=== PATIENT | female | born 1970 | race Caucasian/White ===

== ENCOUNTER 2019-09-12 08:00 | Outpatient (NON) | payer OTHER, SELFPAY ==
[2019-09-12 18:54] LABS: SARS-CoV-2 RNA PCR Negative
== END 2019-09-12 08:01 ==
DX: Z01.812 Encounter for preprocedural laboratory examination (principal); Z11.59 Encounter for screening for other viral diseases; E11.9 Type 2 diabetes mellitus without complications; I10 Essential (primary) hypertension; G47.30 Sleep apnea, unspecified; J45.909 Unspecified asthma, uncomplicated; E78.00 Pure hypercholesterolemia, unspecified
CPT/HCPCS: 87635; C9803; U0003

== ENCOUNTER 2023-03-31 14:23 | Outpatient (CLI) | payer BC, SELFPAY ==
--- NOTE | ~2023-03-31 | MM_ITS ---
EXAMINATION: MM screening librado BI w luis alfredo HISTORY: Screening TECHNIQUE: Craniocaudal and mediolateral oblique 3-D tomosynthesis images were obtained and synthetic 2-D images were generated. CAD analysis was submitted and interpreted. COMPARISON: No prior mammogram is available for comparison at this institution. BREAST PARENCHYMAL COMPOSITION: There are scattered areas of fibroglandular density. FINDINGS: There is no evidence of suspicious mass, calcification, or architectural distortion to sugg est malignancy in either breast. There has been no suspicious interval change. IMPRESSION: 1. No mammographic evidence of malignancy. 2. Recommend routine screening mammography in one year. BI-RADS Category 1: Negative Reviewed, dictated and finalized at location A. S TENDER STAR SIGNAL
== END 2023-03-31 14:24 | disposition home or self-care (01) ==
PROVIDERS: Visit Provider Obstetrics & Gynecology
DX: Z12.31 Encounter for screening mammogram for malignant neoplasm of breast (principal)
CPT/HCPCS: 77063; 77067

== ENCOUNTER 2024-09-20 13:57 | Outpatient (CLI) | payer OTHER, SELFPAY ==
--- NOTE | ~2024-09-20 | MM_ITS ---
EXAMINATION: MM screening [facility] BI w luis alfredo HISTORY: Screening TECHNIQUE: Craniocaudal and mediolateral oblique 3-D tomosynthesis images were obtained and synthetic 2-D images were generated. CAD analysis was submitted and interpreted. COMPARISON: Comparison to multiple prior studies sequentially, with oldest reviewed study dated 12/14. BREAST PARENCHYMAL COMPOSITION: Not Dense: The breasts are almost entirely fatty. 1 FINDINGS: There is no evidence of suspicious mass, calcification, or architectural distortion to sugg est malignancy in either breast. There has been no suspicious interval change. IMPRESSION: 1. No mammographic evidence of malignancy. 2. Recommend routine screening mammography in one year. BI-RADS Category 1: Negative Reviewed, dictated and finalized at location A.
--- OUTSIDE RECORDS SUMMARY | 2024-09-20 14:03 | XMS_ITS | Encounter Summary ---
Author Organization [facility] Address [address] [place] [address] Care Team Providers Care Analytical Chemistry Teacher Name Role Phone Jose Manuel Carranza MD Unavailable Lesa Munguia Primary Care Provider [phone] Encounter Details Date Type Department Care Team (Late st Contact Info) Description 09/15/2024 [employer] Message Enc [facility] Family & Internal Medicine [facility] [address] [place] [address] Lesa Munguia APNP [address] [place] [address] Test results Social History Tobacco Use Types Packs/Day Years Used Date Smoking Tobacco: Never Smokeless Tobacco: Never Alcohol Use Standard Drinks/Week Comments No 0 (1 standard drink = 0.6 oz pur e alcohol) B1300 Health Literacy Answer Date Recor ded How often do you need to hav e someone help you when you read instructions, pamphlets, or other written material from your doctor or pharmacy? Never 02/16/2024 [facility] Utilities Answer Date Recorded In the past 12 months has e electric, gas, oil, or water company threatened to shut off services in your home? No 02/16/2024 Humiliation, Afraid, Rape, and Kick questionnair e Answer Date Recorded Within the last year, have y ou been afraid of your partner or ex-partner? No 02/16/2024 Within the last year, have y ou been humiliated or emotionally abused in other ways by your partner or ex-partner? No Within the last year, have y ou been kicked, hit, slapped, or otherwise physically hurt by your partner or ex-partner? No 02/16/2024 Within the last year, have y ou been raped or forced to have any kind of sexual activity by your partner or ex-partner? No 02/16/2024 Social Connection and Isolat ion Panel [NHANES] Answer Date Recorded In a typical week, how many times do you talk on the phone with family, friends, or neighbors? More than three times a week 02/16/2024 How often do you get togethe r with friends or relatives? More than three times a week 02/16/2024 How often do you attend chur ch or rastafarian services? More than 4 times per year 02/16/2024 Do you belong to any clubs o r organizations such as scientology groups, unions, fraternal or athletic groups, or school groups? Yes 02/16/2024 How often do you attend meet ings of the clubs or organizations you belong to? More than 4 times per year 02/16/2024 Are you , , di vorced, , never , or living with a partner? 02/16/2024 AUDIT-C Answer Date Recorded Q1: How often do you have a drink containing alcohol? Never 02/16/2024 Q2: How many drinks containi ng alcohol do you have on a typical day when you are drinking? Patient does not drink Q3: How often do you have si x or more drinks on one occasion? Never 02/16/2024 Overall Financial Resource Strain (CARDIA) Answe r Date Recorded How hard is it for you to pa y for the very basics like food, housing, medical care, and heating? Not hard at all 02/16/2024 PHQ-2 Answer Date Recorded Patient Health Questionnaire-2 Score 0 03/28/2024 [facility] - Occupational Stress Questionnaire Answer Date Recorded Do you feel stress - tense, restless, nervous, or anxious, or unable to sleep at night because your mind is troubled all the time - these days? Rather much 02/16/2024 Hunger Vital Sign Answer Date Recorded Within the past 12 months, y ou worried that your food would run out before you got the money to buy more. Never true 02/16/20 24 Within the past 12 months, t he food you bought just didn't last and you didn't have money to get more. Never true 02/16/2024 PRAPARE - Transportation Answer Date Re corded In the past 12 months, has l ack of transportation kept you from medical appointments or from getting medications? No 05/2023 In the past 12 months, has l ack of transportation kept you from meetings, work, or from getting things needed for daily living? No 02/16/2024 Housing Stability Vital Sign Answer Jose M e Recorded In the last 12 months, was t here a time when you were not able to pay the mortgage or rent on time? No 02/16/2024 In the past 12 months, how m any times have you moved where you were living? 0 02/16/2024 At any time in the past 12 m [facility], were you homeless or living in a skilled nursing (including now)? No 02/16/2024 Comments No Sex and Gender Information Value Date Recorded Sex Assigned at Female 04/07/2024 7:52 AM PER DIEM REGISTERED NURSE Legal Sex Female 4:22 PM CDT Gender Identity Not on file Sexual Orientation Straight 07/13/2018 9: 36 AM CDT Occupation Industry Job Start Date Job End Date Not on file Not on file Not on file Not on file documented as of this encounter Functional Status * Are you deaf or do you have serious difficulty hearing Answer Date of Assessment Author Status No 02/16/2024 9:48 PM PER DIEM REGISTERED NURSE Tete Kong RN Active * Are you blind or do you have serious difficulty seeing, even when wearing glasses? Answer Date of Assessment Author Status No 02/16/2024 9:48 PM PER DIEM REGISTERED NURSE Tete Kong RN Active * Do you have serious difficulty walking or climbing stairs? Answer Date of Assessment Author Status No 02/16/2024 9:48 PM Tete Monsalve RN Active * Do you have difficulty dressing or bathing? Answer Date of Assessment Author Status No 02/16/2024 9:48 PM PER DIEM REGISTERED NURSE Tete Kong RN Active * Because of a physical, mental, or emotional condition, do you have difficulty doing errands alone such as visiting a doctor's office or shopping? Answer Date of Assessment Author Status No 02/16/2024 9:48 PM Tete Monsalve, RN Active documented as of this encounter Mental Status * Because of a physical, mental, or emotional condition, do you have serious difficulty concentrating, remembering, or making decisions? Answer Entry Date Author Status No 02/16/2024 9:48 PM Tete Monsalve RN Active documented in this encounter Progress Notes * Alayna Steinberg MA - 09/19/2024 12:08 PM CDT Pt is scheduled for OV tomorrow with Lesa to discuss worsening labs, A1c. Pt has voiced openness to discussing medications/other tx options to bring her A1c and lipids back under control. * Alayna Steinberg MA - 09/19/2024 8:35 AM CDT Called pt to offer in-person appt. Tomorrow 09/20/24 with Lesa (aware it is a Virtual day, but Lesahas informed she will be in office conducting the VV tomorrow, so this pt can schedule VV or in-person.) documented in this encounter Plan of Treatment Upcoming Encounters Date Type Department Care Team (Late st Contact Info) Description 09/26/2024 1:40 PM CDT [facility] [address] [facility] [place] [phone] Vale Aparicio MD [address] [place], [place] [id number] 11/01/2024 11:30 AM CDT [facility] [address] [facility] [place] [address] Vish Cook DO [address] [facility] [address] [place] [address] documented as of this encounter Goals Goal Patient Goal Type Associated Problems Recent Progress Patient-Stated? Author Health - patient able to perform ADLs independently Lifestyle No Karla Mccauley, RN documented as of this encounter Visit Diagnoses Not on filedocumented in this encounter Additional Health Concerns Assessment Noted Time PHQ-9 Depression Total Score: 9 03/21/19 23 12:44 PM PER DIEM REGISTERED NURSE documented as of this encounter Care Teams Analytical Chemistry Teacher Relationship Specialty Start Date End Date Lesa Munguia APNP [address] [place] [address] PCP - General NURSE PRACTITIONER 04/30/18 Jose Manuel Carranza MD [facility] [address] [place] [address] Vista Stone Carver CARDIOVASCULAR DISEASE 08/15/15 documented as of this encounter
--- OUTSIDE RECORDS SUMMARY | 2024-09-20 14:03 | XMS_ITS | Encounter Summary ---
Author Organization [facility] Address [address] [place] [address] Care Team Providers Care Software Trainer Name Role Phone Jose Manuel Carranza MD Unavailable Lesa Munguia Primary Care Provider [phone] Encounter Details Date Type Department Care Team (Late st Contact Info) Description 02/14/2020 Prep for Procedure [facility] [place] [address] Erickson Baker MD [address] [id number] Social History Tobacco Use Types Packs/Day Years Used Date Smoking Tobacco: Never Smokeless Tobacco: Never Alcohol Use Standard Drinks/Week Comments No 0 (1 standard drink = 0.6 oz pur e alcohol) PHQ-2 Answer Date Recorded PHQ-2 Score 0 06/11/2018 Comments No Sex and Gender Information Value Date Recorded Sex Assigned at Female 04/07/2024 7:52 AM HVAC SERVICE TECH Legal Sex Female 4:22 PM CDT Gender Identity Not on file Sexual Orientation Straight 07/13/2018 9: 36 AM CDT Occupation Industry Job Start Date Job End Date Not on file Not on file Not on file Not on file COVID-19 Exposure Response Date Recorded In the last month, have you been in contact with someone who was confirmed or suspected to have Coronavirus / COVID-19? No / Unsure 01/25/2020 12:31 PM HVAC SERVICE TECH documented as of this encounter Functional Status * RETIRED Are you deaf or do you have serious difficulty hearing Answer Date of Assessment Author Status No 07/13/2018 9:38 AM CDT Activ e * RETIRED Are you blind or do you have serious difficulty seeing, even when wearing glasses? Answer Date of Assessment Author Status No 07/13/2018 9:38 AM CDT Activ e * Do you have serious difficulty walking or climbing stairs? Answer Date of Assessment Author Status Yes 07/13/2018 9:38 AM CDT Piotr Schmidt R N Active * Do you have difficulty dressing or bathing? Answer Date of Assessment Author Status No 07/13/2018 9:38 AM CDT Piotr Schmidt R N Active * Because of a physical, mental, or emotional condition, do you have difficulty doing errands alone such as visiting a doctor's office or shopping? Answer Date of Assessment Author Status No 07/13/2018 9:38 AM CDT Piotr Schmidt R N Active documented as of this encounter Mental Status * Because of a physical, mental, or emotional condition, do you have serious difficulty concentrating, remembering, or making decisions? Answer Entry Date Author Status No 07/13/2018 11:34 AM CDT Stephany Sawyer RN Active documented in this encounter Plan of Treatment Upcoming Encounters Date Type Department Care Team (Late st Contact Info) Description 09/26/2024 1:40 PM CDT Office Visit [facility] - [address], [address] [place] [phone] Vale Aparicio MD [address] [place] [address] 11/01/2024 11:30 AM CDT Office Visit [facility] - [address] [place] [phone] Vish Cook DO [address] [place] [address] [address] [place] [address] documented as of this encounter Visit Diagnoses Diagnosis Abdominal pain- Primary Abdominal pain, unspecified site documented in this encounter Additional Health Concerns Infection Onset Date Last Indicated Resolved Time COVID-19 Rule Out 11/07/2020 11/07/2020 11/07/2020 2:40 PM CDT COVID-19 Confirmed 11/07/2020 11/07/2020 12:35 AM CDT Assessment Noted Time PHQ-9 Depression Total Score: 8 04/30/19 2:23 PM HVAC SERVICE TECH documented as of this encounter Care Teams Software Trainer Relationship Specialty Start Date End Date Lesa Munguia APNP [address] [place] [address] PCP - General NURSE PRACTITIONER 04/30/18 Jose Manuel Carranza MD [facility] [address] [place] [address] [place] Hearing Health Technician CARDIOVASCULAR DISEASE 08/15/15 documented as of this encounter
--- OUTSIDE RECORDS SUMMARY | 2024-09-20 14:03 | XMS_ITS | Encounter Summary ---
Author Organization [facility] Address [address] [place] [address] Care Team Providers Care Cork Sorter Name Role Phone Jose Manuel Carranza MD Unavailable Lesa Munguia Primary Care Provider [phone] Encounter Details Date Type Department Care Team (Late st Contact Info) Description 08/31/2023 Pre-Procedure Call [facility] [place] [address] Vale Aparicio MD [address] [place], [place] [phone] Social History Tobacco Use Types Packs/Day Years Used Date Smoking Tobacco: Never Smokeless Tobacco: Never Alcohol Use Standard Drinks/Week Comments No 0 (1 standard drink = 0.6 oz pur e alcohol) PHQ-2 Answer Date Recorded Patient Health Questionnaire-2 Score 0 03/26/2023 Comments No Sex and Gender Information Value Date Recorded Sex Assigned at Female 04/07/2024 7:52 AM FABRICATION MACHINE OPERATOR Legal Sex Female 4:22 PM CDT Gender [...] Description 09/26/2024 1:40 PM CDT Office Visit [facility] - [address], [address] [place] [phone] Vale Aparicio MD [address] [place] [phone] 11/01/2024 11:30 AM CDT Office Visit [facility] - [facility] [address] [facility] [place] [phone] Vish Cook DO [address] [place] [address] [address] [place], [place] [phone] documented as of this encounter Visit Diagnoses Not on filedocumented in this encounter Additional Health Concerns Assessment Noted Time PHQ-9 Depression Total Score: 9 03/21/19 23 12:44 PM FABRICATION MACHINE OPERATOR documented as of this encounter Care Teams Cork Sorter Relationship Specialty Start Date End Date Lesa Munguia APNP [facility] [place] [address] PCP - General NURSE PRACTITIONER 04/30/18 Jose Manuel Carranza MD [facility] [address] [place] [address] Franklin Back Facer CARDIOVASCULAR DISEASE 08/15/15 documented as of this encounter
--- OUTSIDE RECORDS SUMMARY | 2024-09-20 14:03 | XMS_ITS | Encounter Summary ---
Author Organization [facility] Address [address] [place] [address] Care Team Providers Care Vehicle Assembly Inspector Name Role Phone Lloyd Garcia MD Primary Care Provider Jose Manuel Dunn MD Unavailable Lesa Munguia Primary Care Provider [phone] Encounter Details Date Type Department Care Team (Late st Contact Info) Description 11/15/2015 [facility] [address] [address] David Tom MA Social History Tobacco Use Types Packs/Day Years Used Date Smoking Tobacco: Never Smokeless Tobacco: Never Alcohol Use Standard Drinks/Week Comments No 0 (1 standard drink = 0.6 oz pur e alcohol) Comments Unknown Sex and Gender Information Value Date Recorded Sex Assigned at Female 04/07/2024 7:52 AM NONPROFIT FUNDRAISER Legal Sex Female 4:22 PM CDT Gender Identity Not on file Sexual Orientation Straight 07/13/2018 9: 36 AM CDT documented as of this encounter Plan of Treatment Upcoming Encounters Date Type Department Care Team (Late st Contact Info) Description 09/26/2024 1:40 PM CDT Office Visit [facility] Multispecialty Care - [address], [address] [place] [address] Vale Aparicio MD [address] [place] [address] 11/01/2024 11:30 AM CDT Office Visit [facility] Medical Group Multispecialty Care - [facility] [address] [place] [address] Vish Cook, DO [address] [facility] [address] [place] [address] documented as of this encounter Procedures Procedure Name Priority Date/Time Associated Diagnosis Comments CBC (OUTSIDE LAB) Routine 01/14/2016 BNP Routine 01/14/2016 COMPREHENSIVE METABOLIC PANEL Routine 01/14/2016 CBC (OUTSIDE LAB) Routine 08/28/2015 VITAMIN B-12 Routine 08/28/2015 COMPREHENSIVE METABOLIC PANEL Routine 08/28/2015 C-REACTIVE PROTEIN Routine 08/28/2015 THYROID STIM HORMONE TSH Routine 08/28/2015 CK (CPK) Routine 08/28/2015 documented in this encounter Results * BNP (01/14/2016) Pathologist [facility] B TYPE NATRIURETIC PEPTIDE 13.8 01/14/2016 us Doc [facility] Final Result * COMPREHENSIVE METABOLIC PANEL (01/14/2016) Pathologist [facility] SODIUM S/P/B 138 POTASSIUM S/P/B 4.3 CO2 23 CHLORIDE S/P/B 98 GLUCOSE 129 CALCIUM S/P/B 9.0 BUN 6 CREATININE S/P/B 0.49 EGFR AFR. AMER. >60 EGFR NON-AFR. AMER. >60 ALKALINE PHOSPHATASE S/P/B 70 ALT 36 AST 25 BILIRUBIN TOTAL S/P/B 0.3 ALBUMIN S/P/B 4.1 3.5 - 5.0 TOTAL PROTEIN S/P/B 6.6 GLOBULIN 2.5 01/14/2016 us Doc [facility] Final Result * CBC (OUTSIDE LAB) (01/14/2016) WBC 10.7 HGB 13.0 HCT 40 PLT 379 01/14/2016 us Doc [facility] Abstract LAB-OUTSIDE/ABSTRACTED Edite d Result - Final * CK (CPK) (08/28/2015) CPK 19 08/28/2015 us Doc [facility] Final Result * VITAMIN B-12 (08/28/2015) VITAMIN B12 S/P/B 417 08/28/2015 us Doc [facility] Final Result * THYROID STIM HORMONE, TSH (08/28/2015) TSH 2.80 08/28/2015 us Doc [facility] Final Result * C-REACTIVE PROTEIN (08/28/2015) CRP 1.59 08/28/2015 us Doc [facility] Final Result * COMPREHENSIVE METABOLIC PANEL (08/28/2015) SODIUM S/P/B 135 POTASSIUM S/P/B 4.1 CO2 24 CHLORIDE S/P/B 97 GLUCOSE 123 CALCIUM S/P/B 9.2 BUN 10 CREATININE S/P/B 0.68 EGFR AFR. AMER. >60 EGFR NON-AFR. AMER. >60 ALKALINE PHOSPHATASE S/P/B 73 ALT 27 AST 23 BILIRUBIN TOTAL S/P/B 0.3 ALBUMIN S/P/B 4.1 3.5 - 5.0 TOTAL PROTEIN S/P/B 7.0 GLOBULIN 2.9 08/28/2015 us Doc [facility] Final Result * CBC (OUTSIDE LAB) (08/28/2015) WBC 10.2 HGB 13.1 HCT 41.6 PLT 367 08/28/2015 us Doc [facility] Abstract LAB-OUTSIDE/ABSTRACTED Final Result documented in this encounter Visit Diagnoses Not on filedocumented in this encounter Additional Health Concerns Infection Onset Date Last Indicated Resolved Time COVID-19 Rule Out 08/09/2019 08/09/2019 08/10/2019 1:14 PM CDT COVID-19 Rule Out 11/07/2020 11/07/2020 11/07/2020 2:40 PM CDT COVID-19 Confirmed 11/07/2020 11/07/2020 12:35 AM CDT documented as of this encounter Care Teams Vehicle Assembly Inspector Relationship Specialty Start Date End Date Lloyd Garcia MD PCP - General FAMILY PRACTICE 08/29/15 04/29/18 Lesa Munguia APNP [address] [place] [address] PCP - General NURSE PRACTITIONER 04/30/18 Jose Manuel Carranza MD [facility] [address] [place] [address] [place] Retail Account Specialist CARDIOVASCULAR DISEASE 08/15/15 documented as of this encounter
--- OUTSIDE RECORDS SUMMARY | 2024-09-20 14:03 | XMS_ITS | Encounter Summary ---
Author Organization [facility] Address [address] [place] [address] Care Team Providers Care Poultry Dressing Worker Name Role Phone Jose Manuel Carranza MD Unavailable Lesa Munguia Primary Care Provider [phone] Encounter Details Date Type Department Care Team (Late st Contact Info) Description 09/19/2024 Results Follow-Up [facility] Medical Group Family & Internal Medicine [facility] [address] [place] [address] Lesa Munguia APNP [address] [place] [address] THYROXINE, FREE (FT4), THYROID STIM HORMONE TSH, CK (CPK), Additional followed-up results: 5 Social History Tobacco Use Types Packs/Day Years [...] from your doctor or pharmacy? Never 02/16/2024 [facility] Utilities Answer Date Recorded In the past 12 months has [employer] gas, oil, or water [employer] threatened to shut off services in your [...] often do you attend chur ch or sabianist services? More than 4 times per year 02/16/2024 Do you belong to any clubs o r organizations such as confucianist groups, unions, fraternal or athletic groups, or [...] Recorded Patient Health Questionnaire-2 Score 0 03/28/2024 [facility] Occupat ional Health - Occupational Stress [...] any time in the past 12 m [facility], were you homeless or living in a [facility]p (including now)? No 02/16/2024 Comments No Sex and Gender Information Value Date Recorded Sex Assigned at Female 04/07/2024 7:52 AM BIOGEOGRAPHER Legal Sex Female 4:22 PM CDT Gender [...] 9:48 PM Tete Monsalve RN Active * Are you blind or do you have serious difficulty seeing, even when wearing glasses? Answer Date of Assessment Author Status No 02/16/2024 9:48 PM Tete Monsalve RN Active * Do you have serious difficulty walking or climbing stairs? Answer Date of Assessment Author Status No 02/16/2024 9:48 PM Tete Monsalve RN Active * Do you have difficulty dressing or bathing? Answer Date of Assessment Author Status No 02/16/2024 9:48 PM Tete Monsalve RN Active * Because of a physical, mental, or emotional condition, do you have difficulty doing errands alone such as visiting a doctor's office or shopping? Answer Date of Assessment Author Status No 02/16/2024 9:48 PM Tete Monsalve RN Active documented as of this encounter Mental Status * Because of a physical, mental, or emotional condition, do you have serious difficulty concentrating, remembering, or making decisions? Answer Entry Date Author Status No 02/16/2024 9:48 PM Tete Monsalve RN Active documented in this encounter Plan of Treatment Upcoming Encounters Date Type Department Care Team (Late st Contact Info) Description 09/26/2024 1:40 PM CDT Office Visit [facility] [address] [facility], [address] [place] [phone] Vale Aparicio MD [address] [place] [address] 11/01/2024 11:30 AM CDT Office Visit [facility] [address] [facility] [place] [phone] Vish Cook DO [address] [facility] [address] [place] [address] documented as of this encounter Goals Goal Patient Goal Type Associated Problems Recent Progress Patient-Stated? Author Health - patient able to perform ADLs independently Lifestyle No Karla Mccauley RN documented as of this encounter Visit Diagnoses Not on filedocumented in this encounter Additional Health Concerns Assessment Noted Time PHQ-9 Depression Total Score: 9 03/21/19 23 12:44 PM BIOGEOGRAPHER documented as of this encounter Care Teams Poultry Dressing Worker Relationship Specialty Start Date End Date Lesa Munguia APNP [address] [place] [address] PCP - General NURSE PRACTITIONER 04/30/18 Jose Manuel Carranza MD Three [facility]. [facility] [address] [place], [place] [phone] [place] Machine Cage Maker CARDIOVASCULAR DISEASE 08/15/15 documented as of this encounter
--- OUTSIDE RECORDS SUMMARY | 2024-09-20 14:03 | XMS_ITS | Data Portability ---
Author Organization [place] - [facility] [employer] [facility] Address [address] [place] [address] Assessment No assessment recorded. Plan of Treatment Reminders Order Date Submit Date Provider Last Modified By Organization Details Last Modified Time Details Appointments None recorded. Lab None recorded. Referral None recorded. Procedures None recorded. Surgeries None recorded. Imaging None recorded. Medication Orders albuterol sulfate 2.5 mg/3 mL (0.083 %) solution for nebulizatio n 2024 025 [facility] [address], [address] [place], [address], 16:36:47 prednisone 20 mg tablet 2024 025 [facility] [address]25, [address] [facility], [place], [address], 16:36:48 benzonatate 200 mg capsule 2024 025 [facility] [address], [address] [place], [address], 16:36:46 Patient TargetsNo targets recorded. Patient Instructions Encounter Date Encounter Id Patient Instructions Last Modified By Organization Details Last Modified Time 03/18/2024 [id number] cough: care instructions [email or web address] Not available 03/18/2024 16:36:41 Take Tessalon Perles (Benzonatate) as prescribed. You may also use an hfsg-gxd-boadhvg cough syrup such as Delsym to help suppress the cough. Drink plenty of fluids. Go to the ER or urgent care if you develop difficulty breathing or any worsening symptoms. [email or web address] Not available 03/18/2024 16:41:13 Reason for Referral None Reported. Medical Equipment None Reported. Allergies No known drug allergies Medications Name Sig Start Date Stop Date Status Note LastModified by Organization Details LastModified Time chlorpheni ramine 4 mg-phenyle phrine 10 mg-DM 15 mg/5 mL oral liquid active Not Available Not Available Not Available albuterol sulfate 2.5 mg/3 mL (0.083 %) solution for nebulizati on Inhale 3 mL every 4-6 hours by nebulizat ion route as needed, for shortness of breath. 2024 active Please ensure patient has nebulizer - may not be covered easily with insurance or be available at pharmacy Not Available Not Available Not Available benzonatat e 200 mg capsule Take 1 capsule 3 times a day by oral route as needed, for cough. 2024 active NOT RECOMMEND ED in patient's less than 10 years of age Not Available Not Available Not Available prednisone 20 mg tablet Take 2 tablets every day by oral route with meal(s) for 5 days. 2024 active Not Available Not Available Not Avai lable estradiol active Not Available Not [place] ilable Not Available levothyrox ine active Not Available Not Available Not Available prednisone active Not Available Not Av ailable Not Available cetirizine active Not Available Not Av ailable Not Available bupropion HCl active Not Available Not Available Not Available UNLISTED MEDICATION [Migrated medicatio n name:] Diflucan 150 mg tablet:: active Not Available Not Available No t Available UNLISTED MEDICATION [Migrated medicatio n name:] Azithromy amanda 250 mg tablet:: active Not Available Not Available No t Available UNLISTED MEDICATION [Migrated medicatio n name:] Metroprol ol:: active Not Available Not Available No t Available UNLISTED MEDICATION [Migrated medicatio n name:] Benzonata te 200 mg capsule:: active Not Available Not Available No t Available Vitals None Recorded Social History None recorded. Functional Status None recorded. Mental Status None recorded. Family History Nothing Reported. Medical History No medical history recorded. Gynecological HistoryNo gynecological history recorded. Obstetrics History GPAL:G 0 P 0 0 0 0 Past Encounters Encounter ID Performer Location Encounter Start Date Encounter Closed Date Diagnosis/Indication Diagnosis SNOMED-CT Code Diagnosis ICD10 Code Diagnosis Note [id number] Jaime baeza MD [facility] [address] [place] [address] 03/18/2024 16:27:54 03/18/2024 22:37:49 Acute bronchospasm 1230100774 9100 J98.01 Cough 46001595 R05.9 Health Concerns Section Related Observation LastModified by Organization Detai ls LastModified Time None Recorded Concern Status LastModified by Organization Details LastModified Time None Recorded Advance Directives Directive None Recorded Payers Insurance Date Sequence Insurance Name Policy Number Policy [place] Covered Member ID [place] Member ID Guarantor Name 05/21/2024 1 [facility] [id number] Luis Angel Suarez [id number] Donavan Suarez 03/18/2024 2 *SELF PAY* [id number] Donavan Suarez [id number] Donavan Suarez 03/18/2024 1 *SELF PAY* [facility] Su[facility] Notes Date Note Type Note Provider Name and Address Organization Details Recorded Time 03/18/2024 text/html Call connected, patient greeted. Patient name, , telephone number and location verified verbally with the patient. Telemedicine limitations reviewed, answered all questions the patient had about the telehealth interaction, and verbal consent obtained to treat. Clinician attests they are physically located in the following state at the time of visit: [place] c/o coughDuration: 2 daysAssociated symptoms: congestion, body aches, cough, fever (just under 100), wheezingDenies: sob, N/v/dHas tried otc medsNot COVID tested yetsick contact: husbandhx of possible reactive airway (last used an inhaler 6 years ago). Has a nebulizer (needs refill of vials). Jaime Jackman MD [facility] [place], [address], [place] [facility] 03/18/2024 16:41:16 OBGyn Episode No OBEpisode recorded.
--- OUTSIDE RECORDS SUMMARY | 2024-09-20 14:03 | XMS_ITS | Encounter Summary ---
Author Organization [facility] Address [address] [place] [address] Care Team Providers Care Website Admin Name Role Phone Lloyd Garcia MD Primary Care Provider Jose Manuel Dunn MD Unavailable Lesa Munguia Primary Care Provider [phone] Encounter Details Date Type Department Care Team (Late Contact Info) Description 04/11/2016 Abstract [facility] CONVERSION [address] [place] [address] , Generic Conversion, Social History Tobacco Use Types Packs/Day Years Used Date Smoking Tobacco: Never Assessed Comments Unknown Sex and Gender Information Value Date Recorded Sex Assigned at Female 04/07/2024 7:52 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 [address] [place] [address] Vish Cook DO [address] [place] [address] documented as of this encounter Visit Diagnoses Not on filedocumented in this encounter Additional Health Concerns Infection Onset Date Last Indicated Resolved Time COVID-19 Rule Out 08/09/2019 08/09/2019 08/10/2019 1:14 PM CDT COVID-19 Rule Out 11/07/2020 11/07/2020 11/07/2020 2:40 PM CDT COVID-19 Confirmed 11/07/2020 11/07/2020 12:35 AM CDT documented as of this encounter Care Teams Website Admin Relationship Specialty Start Date End Date Lloyd Garcia MD PCP - General FAMILY PRACTICE 08/29/15 04/29/18 Lesa Munguia APNP [facility] [place] [address] PCP - General NURSE PRACTITIONER 04/30/18 Jose Manuel Carranza MD [address] [place] [address] [place] [employer] Editor CARDIOVASCULAR DISEASE 08/15/15 documented as of this encounter
--- OUTSIDE RECORDS SUMMARY | 2024-09-20 14:03 | XMS_ITS | Encounter Summary ---
Author Organization [facility] Address [facility] [place] [address] Care Team Providers Care Pediatric Dietician Name Role Phone Jose Manuel Carranza MD Unavailable Lesa Munguia Primary Care Provider [phone] Encounter Details Date Type Department Care Team (Late st Contact Info) Description 09/10/2022 [employer] Message [facility] Medical Group [facility] [address] [place] [address] [place], 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 Legal Sex Female 4:22 PM CDT Gender [...] Description 09/26/2024 1:40 PM CDT [facility] [place] [facility] 3 [facility], [address] [place] [phone] Vale Aparicio MD [address] [place] [address] 11/01/2024 11:30 AM CDT Office Visit [facility] - [facility] [place] [facility] [address] [place] [address] Vish Cook DO [address] [facility] [address] [place] [address] documented as of this encounter Visit Diagnoses Not on filedocumented in this encounter Additional Health Concerns Assessment Noted Time PHQ-9 Depression Total Score: 9 03/21/19 23 12:44 PM SECURITY ADMINISTRATOR documented as of this encounter Care Teams Pediatric Dietician Relationship Specialty Start Date End Date Lesa Munguia APNP [address] [place] [address] PCP - General NURSE PRACTITIONER 04/30/18 Jose Manuel Carranza MD [facility] [address] [place] [address] [place] Cue Worker CARDIOVASCULAR DISEASE 08/15/15 documented as of this encounter
--- OUTSIDE RECORDS SUMMARY | 2024-09-20 14:03 | XMS_ITS | Encounter Summary ---
Author Organization [facility] Address [address] [place] [address] Care Team Providers Care Cathode Maker Name Role Phone Jose Manuel Carranza MD Unavailable Lesa Munguia Primary Care Provider [phone] Encounter Details Date Type Department Care Team (Late st Contact Info) Description 07/06/2023 MOOVIA Message Enc [facility] Medical Group [facility] - [facility] [address] [facility], [address] [place] [address] TE2, [facility] Provider Cancellation. 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 Legal Sex Female 4:22 PM CDT Gender [...] Author Status Yes 07/13/2018 9:38 AM CDT Brayan Kyle Escamilla Active * Do you have difficulty dressing [...] Date Type Department Care Team (Late st [facility] Info) Description 09/26/2024 1:40 PM CDT Office Visit [facility] - [address], [address] [place] [phone] Vale Aparicio MD [address] [place] [address] 11/01/2024 11:30 AM CDT Office Visit [facility] - [address] [place] [phone] Vish Cook DO [address] [facility] [address] [place] [address] documented as of this encounter Visit Diagnoses Not on filedocumented in this encounter Additional Health Concerns Assessment Noted Time PHQ-9 Depression Total Score: 9 03/21/19 23 12:44 PM LINING CLOSER documented as of this encounter Care Teams Cathode Maker Relationship Specialty Start Date End Date Lesa Munguia APNP [address] [place] [address] PCP - General NURSE PRACTITIONER 04/30/18 Jose Manuel Carranza MD [facility]. [facility] [address] [place] [address] Jaffrey Paring Machine Operator CARDIOVASCULAR DISEASE 08/15/15 documented as of this encounter
--- OUTSIDE RECORDS SUMMARY | 2024-09-20 14:03 | XMS_ITS | Clinical Summary ---
Author Organization [facility] Address [address] [place], [facility] [address] [place] [address] Phone Care Team Providers Care Memorial Adviser Name Role Phone Lloyd Garcia MD Primary Care Provider Mike Marques DO Unavailable [phone] Joesph Tao MD Unavailable Allergies Active Allergy Reactions Criticality Noted Date Comments Codeine Other (see Comments) 03/14/2016 Blood pressure drop-dizzy/nausea Medications METOPROLOL SUCCINATE ER PO Take 150 mg by mouth daily. Active pantoprazole (PROTONIX) 40 MG Tablet Delayed Response Take 40 mg by mouth daily. Active raNITIdine (ZANTAC) 150 MG Tablet Take 150 mg by mouth 2 times daily. Active loratadine (CLARITIN) 10 MG Tablet Take 10 mg by mouth daily. Active saccharomyces boulardii (FLORASTOR) 250 MG Capsule Take 250 mg by mouth 2 times daily. Active Fluticasone-Wes meterol (ADVAIR DISKUS IN) take 2 Puffs by inhalation 2 times daily. Active Family History Medical History Relation Name Comments Crohn's Disease Brother Diabetes Father Heart Attack Father Hypertension Mother Other-comment Mother tachycardia Relation Name Status Comments Brother Father Alive Mother Alive Social History Tobacco Use Types Packs/Day Years Used Date Smoking Tobacco: Never Alcohol Use Standard Drinks/Week Comments No 0 (1 standard drink = 0.6 oz pur e alcohol) Comments Unknown Sex and Gender Information Value Date Recorded Sex Assigned at Not on file Legal Sex Female 4:12 PM WELLFIELD TECHNICIAN Gender Identity Not on file Sexual Orientation Not on file 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 Not on file Not on file Not on file Last Filed Vital Signs Vital Sign Reading Time Taken Comments Blood Pressure 127/79 03/18/2016 8:57 AM WELLFIELD TECHNICIAN Pulse 90 03/18/2016 7:18 AM WELLFIELD TECHNICIAN Temperature 36 C (96.8 F) 03/18/2016 8:57 AM WELLFIELD TECHNICIAN Respiratory Rate 20 03/18/2016 8:57 AM WELLFIELD TECHNICIAN Oxygen Saturation 99% 03/18/2016 8:57 AM WELLFIELD TECHNICIAN Inhaled Oxygen Concentration - - Weight 88.5 kg (195 lb) 03/14/2016 11:00 AM WELLFIELD TECHNICIAN Height 154.9 cm (5' 1) 03/14/2016 11:00 AM WELLFIELD TECHNICIAN Body Mass Index 36.84 03/14/2016 11:00 AM WELLFIELD TECHNICIAN Plan of Treatment Health Maintenance Due Date Last Done Comments Hepatitis C Virus (HCV) Screening 1970 TdaP Immunization 1970 Hepatitis B Immunization (1 of 3 - 19+ 3-dose series) 1989 Pap Smear 07/06/1991 Cervical Cancer Screening (CCS) 2000 HPV/Cotest 2000 Cologuard 2020 Immunochemical Fecal Occult Blood 2020 Mammogram 2020 Pneumococcal Immunization (5 0+ years) (1 of 1 - PCV) 2020 Zoster Immunization (1 of 2) 2020 Influenza Immunization (#1) 2023 SARS-COV-2 Immunization ( season) 2023 Colonoscopy 03/18/2026 03/18/2016 Colorectal Cancer Screening 03/18/2026 Respiratory Syncytial Virus (RSV) Immunization (Adult) (1 - 1-dose 75+ series) 2045 Meningococcal Immunization (ACWY) Aged Out No longer eligible based on patient's age to complete this topic Pneumococcal Immunization Combined Aged Out No longer eligible based on patient's age to complete this topic Rotavirus Immunization Aged Out No lo nger eligible based on patient's age to complete this topic Insurance [facility] Care Teams Memorial Adviser Relationship Specialty Start Date End Date Lloyd Garcia MD [address] [place] [address] PCP - General Family Medicine 03/12/16 Mike Marques DO [address] [place] [address] Gastroenterology 03/12/16 Joesph Tao MD [address] [place] [address] Internal Medicine 03/12/16
--- OUTSIDE RECORDS SUMMARY | 2024-09-20 14:03 | XMS_ITS | Encounter Summary ---
Author Organization [facility] Address [address] [place] [address] Care Team Providers Care Crop Pest Control Specialist Name Role Phone Jose Manuel Carranza MD Unavailable Lesa Munguia Primary Care Provider [phone] Reason for Visit * Reason Comments Lab Results Diabetes Encounter Details Date Type Department Care Team (Late st Contact Info) Description 09/20/2024 11:20 AM CDT Office Visit [facility] Medical Group Family & Internal Medicine [address] [place] [address] Lesa Munguia APNP [address] [place] [address] Lab Results; Diabetes Social History Tobacco Use Types Packs/Day Years [...] from your doctor or pharmacy? Never 02/16/2024 [facility] Utilities Answer Date Recorded In the past 12 months has e ECO, gas, oil, or water [employer] threatened to shut off services in your [...] 02/16/2024 How often do you attend chur or voodoo services? More than 4 times per year 02/16/2024 Do you belong to any clubs o r organizations such as anabaptism groups, unions, fraternal or athletic groups, or [...] Recorded Patient Health Questionnaire-2 Score 0 03/28/2024 [facility] [place] of Occupat ional Health - Occupational Stress [...] any time in the past 12 m [facility], were you homeless or living in a fdc (including now)? 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 Legal Sex Female 4:22 PM CDT Gender Identity Not on file Sexual Orientation Straight 07/13/2018 9: 36 AM CDT Occupation Industry Job Start Date Job End Date Not on file Not on file Not on file Not on file documented as of this encounter Last Filed Vital Signs Vital Sign Reading Time Taken Comments Blood Pressure 112/78 09/20/2024 11:24 AM CDT Pulse 83 09/20/2024 11:24 AM CDT Temperature 36.1 C (97 F) 09/20/2024 11:24 AM CDT Respiratory Rate 16 09/20/2024 11:24 AM CDT Oxygen Saturation 96% 09/20/2024 11:24 AM CDT Inhaled Oxygen Concentration - - Weight 86.9 kg (191 lb 9.6 oz) 09/20/2024 11:24 AM CDT Height 152.4 cm (5') 09/20/2024 11:24 AM CDT Body Mass Index 37.42 09/20/2024 11:24 AM CDT documented in this encounter Functional Status * Are you [...] Description 09/26/2024 1:40 PM CDT Office Visit [facility] - [address], [address] [place] [phone] Vale Aparicio MD [address] [place] [address] 11/01/2024 11:30 AM CDT Office Visit [facility] - [address] [place] [phone] Vish Cook DO [address] [place] [address] [address] [place], [place] [phone] documented as of this encounter Goals Goal Patient Goal Type Associated Problems Recent Progress Patient-Stated? Author Health - patient able to perform ADLs independently Lifestyle No Karla Mccauley, RN documented as of this encounter Visit Diagnoses Diagnosis Screening for colon cancer- Primary Special screening for malignant neoplasms, colon Type 2 diabetes mellitus with hyperglycemia, without long-term current use of insulin ([facility]/HCC) Essential hypertension Unspecified essential hypertension Mixed hyperlipidemia Subclinical hypothyroidism Other specified acquired hypothyroidism documented in this encounter Additional Health Concerns Assessment Noted Time PHQ-9 Depression Total Score: 9 03/21/19 23 12:44 PM MACHINE REBUILDER documented as of this encounter Care Teams Crop Pest Control Specialist Relationship Specialty Start Date End Date Lesa Munguia APNP [facility] [place] [address] PCP - General NURSE PRACTITIONER 04/30/18 Jose Manuel Carranza MD [facility] [address] [place] [address] [place] Climbing Team Member CARDIOVASCULAR DISEASE 08/15/15 documented as of this encounter
--- OUTSIDE RECORDS SUMMARY | 2024-09-20 14:03 | XMS_ITS | Encounter Summary ---
Author Organization [facility] Address [address] [place] [address] Care Team Providers Care Brake Repairer Name Role Phone Jose Manuel Pollock MD Unavailable Lesa Munguia Primary Care Provider [phone] Encounter Details Date Type Department Care Team (Late st Contact Info) Description 09/29/2023 Pre-Procedure Call [facility] Pre-Admission [place] [address] Jimena Coyne RN Anesthesia Record Procedure Summary Procedure Name Responsible Anesthesiologist Anesthesia Start Time Anesthesia Stop Time MRI BRAIN WWO CON Darryn Rhodes MD 10/07/23 0820 0 10/07/23 1057 Events Date Time Event Comment 10/07/2023 0820 An Start Patient ID and consent checked and patient reassessed. 0820 An Start Data 0826 Nasal Cannula Applied 0828 An Induction The patient was reevaluated immediately before moderate or deep sedation use and before anesthesia induction. 0828 Anesthesia Ready 1047 An Emergence 1047 Nasal Cannula Removed 1049 an stop data 1050 1050 AN Anesthesia Prepped 1057 Post Anesthetic Care Handoff I completed my handoff to the receiving nurse during which we: 1. Identified the patient 2. Identified the responsible provider 3. Reviewed the pertinent medical history 4. Discussed the surgical course 5. Reviewed intra-op anesthesia management and issues during anesthesia 6. Set expectations for post-procedure period 7. Allowed opportunity for questions and acknowledgement of understanding. 1057 An Stop Meds * Agents No agents on file. * Blood No blood administrations on file. Lines, Drains, and Airways Type Details Placement Removal Peripheral IV Placement Date: 09/14 07/07; Placement Time: 0710; Placed Outside of This Facility?: No; Size: 20 G; Orientation: Left; Location: Antecubital; Site Prep: Alcohol; Local Anesthetic: None; Insertion attempts: 1; Ultrasound-guided Placement?: No; Patient Tolerance: Tolerated well; Removal Date: 10/07/23; Removal Time: 1150; Removal Reason: Patient Discharged 10/07/23 0710 by Luzma Trevino RN 10/07/23 1150 by Luzma Trevino RN documented in this encounter Social History Tobacco Use Types Packs/Day Years Used Date Smoking Tobacco: Never Smokeless Tobacco: Never Alcohol Use Standard Drinks/Week Comments No 0 (1 standard drink = 0.6 oz pur e alcohol) PHQ-2 Answer Date Recorded Patient Health Questionnaire-2 Score 0 03/26/2023 Comments No Sex and Gender Information Value Date Recorded Sex Assigned at Female 04/07/2024 7:52 AM MECHANICAL SOUND TECHNICIAN Legal Sex Female 4:22 PM CDT Gender Identity Not on file Sexual Orientation Straight 07/13/2018 9: 36 AM CDT Occupation Industry Job Start Date Job End Date Not on file Not on file Not on file Not on file documented as of this encounter Last Filed Vital Signs Vital Sign Reading Time Taken Comments Blood Pressure - - Pulse - - Temperature - - Respiratory Rate - - Oxygen Saturation - - Inhaled Oxygen Concentration - - Weight 81.6 kg (180 lb) 09/29/2023 3:00 PM CDT Height 152.4 cm (5') 09/29/2023 3:00 PM CDT Body Mass Index 35.15 09/29/2023 3:00 PM CDT documented in this encounter Functional Status * RETIRED Are [...] Sawyer RN Active documented in this encounter Progress Notes * Jimena Coyne RN - 09/29/2023 3:07 PM CDT Can you climb 2 flights of stairs without CP or extreme SOB? YES Are you physically able to do the same things today that you could 6 months ago? YES Any recent heart testing? (EKG, stress test, Echo?) NO ECHO 2018, EKG 2019 Do you see a locker room clerk? Who is it? NOT ANYMORE- I DID SEE DR POLLOCK WITH [place]- I LOST 80 LBS AND MOST OF MY PROBLEMS WENT AWAY- NO LONGER IS ON WATER PILL NO LONGER HAS SLEEP APNEA DOESN'T USE ASSISTIVE DEVICES UNLESS SHE WALKING LONG DISTANCES LIKE AT [employer]- HAVING MRI 2/2 MEMORY LOSS ISSUES, CONFUSION HAS SEVERE ANXIETY NO MS FLARE UPS IN YEARS documented in this encounter OR Notes * OR PreOp - MARTHA Velazquez - 09/29/2023 3:18 PM CDT Chart reviewed. Per phone interview, patient denies extreme SOB/CP with 2 FOS or recent changes in activity tolerance in past 6 months. Patient saw locker room clerk Dr. Pollock in the past and previous cardiac testing copied. Hx PONV EKG 06/30/19 SINUS RHYTHM LOW QRS VOLTAGE IN PRECORDIAL LEADS Compared to ECG 06/17/2018 21:38:39 Low QRS voltage now present T-wave abnormality no longer present No ischemic changes Rate 73 Echo 06/18/18 The left ventricular size is normal. The left ventricular systolic function is normal. Estimated left ventricular ejection fraction is 65-70%. Mild concentric left ventricular hypertrophy. Left ventricular diastolic function is abnormal (grade 1 - impaired relaxation).No significant valvular abnormality. Stress Test 06/18/18 Stress conclusion: 1. Clinically positive for chest pain. 2. Electrocardiographically negative treadmill test for ischemi a. 3. Fair exercise capacity.Heart rate achieved quickly due to de conditioning. 4. Olivarez Treadmill Score is 3, which indicates moderate risk. 5. Blood pressure response was normal. 6. Scintigraphic images to follow. Perfusion conclusion: 1. Good study quality. Resting and stress motion correction was a pplied to images. No attenuation is noted. Prone imaging was performed. 2. Normal myocardial perfusion SPECT imaging. 3. Normal wall motion with an ejection fraction of 55%. 4. Stress test with myocardial perfusion imaging shows overall low risk for a cardiac event. documented in this encounter Plan of Treatment Upcoming Encounters Date Type Department Care Team (Late st Contact Info) Description 09/26/2024 1:40 PM CDT [facility] [address] [facility], [address] [place] [phone] Vale Aparicio MD [address] [place] [address] 11/01/2024 11:30 AM CDT [facility] [address] [facility] [place] [phone] Vish Cook DO [address] [place] [address] documented as of this encounter Visit Diagnoses Not on filedocumented in this encounter Additional Health Concerns Assessment Noted Time PHQ-9 Depression Total Score: 9 03/21/19 23 12:44 PM MECHANICAL SOUND TECHNICIAN documented as of this encounter Care Teams Brake Repairer Relationship Specialty Start Date End Date Lesa Munguia APNP [facility] [place] [address] PCP - General NURSE PRACTITIONER 04/30/18 Jose Manuel Pollock MD [facility] [address] [place] [address] [employer] CARDIOVASCULAR DISEASE 08/15/15 documented as of this encounter
--- OUTSIDE RECORDS SUMMARY | 2024-09-20 14:03 | XMS_ITS | Encounter Summary ---
Author Organization [facility] Address [address] [place] [address] Care Team Providers Care Refrigeration Engineer Name Role Phone Jose Manuel Carranza MD Unavailable Lesa Munguia Primary Care Provider [phone] Encounter Details Date Type Department Care Team (Latest Contact Info) Description 09/20/2024 Travel Social History Tobacco Use Types Packs/Day Years [...] from your doctor or pharmacy? Never 02/16/2024 [facility] Utilities Answer Date Recorded In the past 12 months has e [employer], gas, oil, or water [email or web address] threatened to shut off services in your [...] often do you attend chur ch or gnosticism services? More than 4 times per year 02/16/2024 Do you belong to any clubs o r organizations such as mormon groups, unions, fraternal or athletic groups, or [...] Recorded Patient Health Questionnaire-2 Score 0 03/28/2024 [facility] - Occupational Stress Questionnaire Answer Date Recorded [...] any time in the past 12 m [facility], were you homeless or living in a snf (including now)? No 02/16/2024 Comments No Sex and Gender Information Value Date Recorded Sex Assigned at Female 04/07/2024 7:52 AM DEBT RECOVERY OFFICER Legal Sex Female 4:22 PM CDT Gender [...] Date Author Status No 02/16/2024 9:48 PM DEBT RECOVERY OFFICER Long, Tete R, RN Active documented in this encounter Plan of Treatment Upcoming Encounters Date Type Department Care Team (Late st Contact Info) Description 09/26/2024 1:40 PM CDT Office Visit [facility] [address] [facility], [address] [place] [phone] Vale Aparicio MD [address] [place] [address] 11/01/2024 11:30 AM CDT Office Visit [facility] [address] [facility] [place] [phone] Vish Cook DO [address] [facility] [address] [place], [place] [phone] documented as of this encounter Goals Goal Patient Goal Type Associated Problems Recent Progress Patient-Stated? Author Health - patient able to perform ADLs independently Lifestyle No Karla Mccauley, RN documented as of this encounter Visit Diagnoses Not on filedocumented in this encounter Additional Health Concerns Assessment Noted Time PHQ-9 Depression Total Score: 9 03/21/19 23 12:44 PM DEBT RECOVERY OFFICER documented as of this encounter Care Teams Refrigeration Engineer Relationship Specialty Start Date End Date Lesa Mnuguia APNP [address] [place] [address] PCP - General NURSE PRACTITIONER 04/30/18 Jose Manuel Carranza MD [facility]. [address] [place] [address] Yolyn Bookbinder Apprentice CARDIOVASCULAR DISEASE 08/15/15 documented as of this encounter
--- OUTSIDE RECORDS SUMMARY | 2024-09-20 14:04 | XMS_ITS | Clinical Summary ---
Author Organization [facility] Address [address] [place] [address] Care Team Providers Care Gold Blower Name Role Phone Jose Manuel Carranza MD Unavailable Lesa Munguia Primary Care Provider [phone] Allergies Active Allergy Reactions Criticality Noted Date Comments Codeine Nausea Only Medium 08/28/2015 Blood pressure drop-dizzy/nausea IF SHE TAKES MED FOR NAUSEA USUALLY IT IS FINE Lisinopril Cough Medium 12/26/2015 Morphine And Codeine Nausea Only Medium 11/13/2015 BP drops, nausea, sweating Medications multi vitamin/minerals tablet Take 1 tablet by mouth daily. Active estradiol (ESTRACE) 1 MG tablet Take 1 tablet (1 mg total) by mouth daily. 024 Active cetirizine (ZYRTEC) 10 MG tablet Take 1 tablet (10 mg total) by mouth daily. Active rimegepant (NURTEC) 75 MG disintegrating tabletIndications :Migraine without aura, not intractable, without status migrainosus Take 1 tablet (75 mg total) by mouth daily as needed for Migraine. Max of 1 tablet (75 mg) in 24 hours. 8 tablet 5 025 Active budesonide-formot nate (SYMBICORT) 80-4.5 MCG/ACT inhalerIndication s:Moderate persistent asthma without complication (HHS/HCC) Inhale 2 puffs into the lungs 2 (two) times daily. 10.2 g 1 025 Active Additional Information Patient not taking.Reported on 09/20/2024 Albuterol-Budeson pepito (AIRSUPRA) 90-80 MCG/ACT AerosolIndication s:Moderate persistent asthma without complication (HHS/HCC) Inhale 2 puffs into the lungs every 4 (four) hours as needed. 5.9 g 6 Active albuterol (PROVENTIL) (2.5 MG/3ML) 0.083% nebulizer solutionIndicatio ns:Moderate persistent asthma without complication (HHS/HCC) Take 3 mLs (2.5 mg total) by nebulization every 4 (four) hours as needed for Wheezing. 360 mL 3 Active rosuvastatin (CRESTOR) 10 MG tabletIndications :Mixed hyperlipidemia Take 1 tablet (10 mg total) by mouth nightly at bedtime. 90 tablet 3 025 Active mirtazapine (REMERON) 30 MG tabletIndications :Primary insomnia Take 1 tablet (30 mg total) by mouth nightly at bedtime. 90 tablet 3 Active buPROPion XL (WELLBUTRIN XL) 150 MG 24 hr tabletIndications :Recurrent major depressive disorder, in partial remission Take 1 tablet (150 mg total) by mouth daily. 90 tablet 1 Active metoprolol succinate ER (TOPROL-XL) 25 MG 24 hr tabletIndications :Essential hypertension Take 1 tablet (25 mg total) by mouth daily. 90 tablet 3 025 Active estradiol (ESTRACE) 0.1 MG/GM vaginal cream APPLY 1 GRAM VAGINALLY THREE TIMES WEEKLY BEFORE BED FOR 30 DAYS Active levothyroxine (SYNTHROID) 88 MCG tabletIndications :Subclinical hypothyroidism Take 1 tablet (88 mcg total) by mouth every morning. 30 tablet 1 025 Active Insulin Glargine, 1 Unit Dial, (RADHIKA VAZQUEZ) 300 UNIT/ML Solution Pen-injectorIndic ations:Type 2 diabetes mellitus with hyperglycemia, without long-term current use of insulin ([facility]/HCC HHS/HCC) Inject 12 Units into the skin daily. 4.5 mL 1 025 Active loratadine 10 MG tablet Take 1 tablet (10 mg total) by mouth daily. 2024 Discontinued(E rror) benzonatate (TESSALON) 200 MG capsule Take 1 capsule (200 mg total) by mouth 3 (three) times daily as needed. FOR COUGH 025 2024 Discontinued(T herapy completed) rosuvastatin (CRESTOR) 10 MG tabletIndications :Mixed hyperlipidemia TAKE 1 TABLET BY MOUTH NIGHTLY AT BEDTIME . APPOINTMENT REQUIRED FOR FUTURE REFILLS 90 tablet 1 025 2024 Discontinued(R eorder) buPROPion XL (WELLBUTRIN XL) 150 MG 24 hr tabletIndications :Recurrent major depressive disorder, in partial remission Take 1 tablet by mouth once daily 90 tablet 1 025 2024 Discontinued(R eorder) metoprolol succinate ER (TOPROL-XL) 25 MG 24 hr tabletIndications :Essential hypertension Take 1 tablet by mouth once daily 90 tablet 025 2024 Discontinued levothyroxine (SYNTHROID) 75 MCG tabletIndications :Subclinical hypothyroidism TAKE 1 TABLET BY MOUTH IN THE MORNING 90 tablet 025 2024 Discontinued(R eorder) mirtazapine (REMERON) 15 MG tabletIndications :Primary insomnia TAKE 1 TABLET BY MOUTH NIGHTLY AT BEDTIME 30 tablet 025 2024 Discontinued(R eorder) mirtazapine (REMERON) 15 MG tabletIndications :Primary insomnia Take 1 tablet (15 mg total) by mouth nightly at bedtime. at bedtime 30 tablet 025 2024 Discontinued metoprolol succinate ER (TOPROL-XL) 25 MG 24 hr tabletIndications :Essential hypertension Take 1 tablet by mouth once daily 90 tablet 025 2024 Discontinued(R eorder) mirtazapine (REMERON) 15 MG tabletIndications :Primary insomnia TAKE 1 TABLET BY MOUTH NIGHTLY AT BEDTIME 30 tablet 025 2024 Discontinued(D ose adjustment) levothyroxine (SYNTHROID) 75 MCG tabletIndications :Subclinical hypothyroidism Take 1 tablet (75 mcg total) by mouth every morning. 90 tablet 3 025 2024 Discontinued(D ose adjustment) Active Problems Patient Care Coordination No te Formatting of this note migh t be different from the original. OP PT precautions: MS, fibromyalgia, HTN, type 2 diabetes, CHF, denies all other pertinent questions. Problem Noted Date Diagnosed Date TIA (transient ischemic attack) 02/16/2024 Abnormal MRI 10/15/2023 Recurrent major depressive disorder, in partial remission 03/21/2022 Fibromyalgia 06/25/2021 Subclinical hypothyroidism 12/28/2020 Primary insomnia 12/28/2020 Hematochezia 12/26/2019 Overview (12/26/2019): Added automatically from request for surgery [id number] History of colitis 12/26/2019 Overview (12/26/2019): Added automatically from request for surgery [id number] BMI 32.0-32.9,adult 02/08/2019 Osteoporosis 11/09/2018 Syncope 06/17/2018 Mixed hyperlipidemia 06/14/2018 Leukocytosis 07/31/2017 Elevated liver enzymes 07/27/2017 Fatty liver disease, nonalcoholic 07/27/2017 Overview (06/17/2018): elevated liver enzymes Rectal bleeding 07/23/2017 Diverticulosis 05/25/2017 Asthma ([facility]) 04/22/2016 Acid reflux 01/24/2016 Snoring 01/24/2016 PND (paroxysmal nocturnal dyspnea) 01/14/2016 Chronic cough 11/05/2015 Fatigue 08/28/2015 Peripheral neuropathy 08/28/2015 Multiple sclerosis ([facility]) 08/28/2015 Essential hypertension 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 (HFpEF) heart failure with p reserved ejection fraction ([facility]) Overview (06/15/2018): diastolic Diabetes mellitus ([facility]) Resolved Problems Problem Noted Date Diagnosed Date Resolved Date Sepsis ([facility]) 07/12/201809/2018 Nausea 07/30/2017 06/15/2018 Diverticulitis, colon 07/23/20172018 Pharyngitis 07/23/2017 06/14/2018 Hypertension, benign 05/25/2017 019 Shortness of breath 01/14/2016 06/16/19 19 CHF (congestive heart failur e) ([facility]) 01/14/2016 06/15/2018 Acute on chronic diastolic c ongestive heart failure ([facility]) 11/17/2015 12/26/2015 Arrhythmia 08/28/2015 06/15/2018 Multiple sclerosis ([facility]) 12/26/2015 Diastolic heart failure ([facility]) 06/15/2018 Encounters Date Type Department Care Team Description 09/20/2024 11:20 AM CDT Office Visit [facility] [address] [address] Lesa Munguia APNP Lab Results; Diabetes 09/20/2024 Travel 09/19/2024 Results Follow-Up [facility] [address] [address] Lesa Munguia APNP THYROXINE, FREE (FT4), THYROID STIM HORMONE TSH, CK (CPK), Additional followed-up results: 5 09/15/2024 9:20 AM CDT Laboratory Only [address] [phone] Lesa Munguia APNP 09/15/2024 - 09/15/2024 11:59 PM CDT Hospital Encounter [facility] [address] [place] [address] Lesa Munguia APNP Discharge Disposition: Home or Self Care (Routine Discharge) 09/15/2024 MyChart Message Enc [facility] [address] [address] Lesa Munguia APNP Test results 09/15/2024 Travel 09/13/2024 12:00 PM CDT Telemedicine [facility] [address] [address] Lesa Munguia APNP Diabetes; Mole (Pt has noticed more and more moles and other skin growths over the past 6 months. She is fair-skinned and vazquez easily in the sun. She has had sunburns as a child. She tries to wear sunscreen regularly. She has never seen a integration software developer.) 09/13/2024 Travel 07/22/2024 Telephone [facility] - [address] [address] Vish Cook DO Information 06/21/2024 10:00 AM CDT Office Visit [facility] - [address], [address] [place] [address] Vish Cook DO Establish Care (CHRIS) 06/21/2024 Travel from Last 3 Months Immunizations Immunization Administration Dates Next Due Fluzone (IIV3, Trivalent, 0. 5 ML Prefilled Syringe) 02/17/2024(Deferred: Patient/family declined - Pt states she does not want the flu vaccine anymore and will get it another time.) Fluzone 6 Months+ Quad (0.5 mL Prefilled Syringe) 03/26/2023,12/19/2020 04/22/2021 Pneumococcal (Prevnar 20) 03/26/2023 Tdap (Adacel) 11/27/2020 Family History Medical History Relation Comments Diabetes Father Heart Father Heart Attack Father Heart Disease Father Hypertension Father Stent Cardiac Father Cancer Maternal Aunt breast and uteru s Cancer Maternal Grandmother breast and uterus Diabetes Maternal Grandmother Alcohol Abuse Maternal Uncle Early Hearing Loss Mother Heart Mother Alcohol Abuse Paternal Grandfather Relation Status Comments Father Alive Maternal Aunt Maternal Grandmother Maternal Uncle Alive Mother Paternal Grandfather Alive Social History Tobacco Use Types Packs/Day Years Used Date Smoking Tobacco: Never Smokeless Tobacco: Never Tobacco Cessation:Counseling Given: No Alcohol Use Standard Drinks/Week Comments No 0 (1 standard drink = 0.6 oz pur e alcohol) B1300 Health Literacy Answer Date Recor ded How often do you need to hav e someone help you when you read instructions, pamphlets, or other written material from your doctor or pharmacy? Never 02/16/2024 [facility] Utilities Answer Date Recorded In the past 12 months has th e electric, gas, oil, or water company [...] How often do you attend chur or restorationism services? More than 4 times per year 02/16/2024 Do you belong to any clubs o r organizations such as sabianism groups, unions, fraternal or athletic groups, or [...] Recorded Patient Health Questionnaire-2 Score 0 03/28/2024 [facility] Occupat ional Health - Occupational Stress [...] in the past 12 m [facility], were you homeless or living in a usp (including now)? 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 [address], [address] [place] [phone] Vale Aparicio MD [address] [place] [address] 11/01/2024 11:30 AM CDT Office Visit [facility] [address] [place] [phone] Vish Cook DO [address] [place] [address] Health Maintenance Due Date Last Done Comments Colorectal Cancer Screening Colonoscopy (10 Years) 1970 Kidney Health Evaluation 1970 Annual Physical 1973 Diabetes: Retinopathy Eye Exam 1988 Hepatitis B Vaccines (1 of 3 - 19+ 3-dose series) 1989 Zoster Vaccines (1 of 2) 2020 Mammogram Screening 09/21/2024 Postpone d from 2010 (Future Appointment) Hemoglobin A1C 12/16/2024 09/15/2024, 12/0 06/2023, 03/18/2023, Additional history exists COVID-19 Vaccine ( season) 2025 05/24/2020 Postponed from 11/15/2023 (Patient Refused) Lipid Panel 09/15/2025 09/15/2024, 12/0 06/2023, 03/18/2023, Additional history exists DTaP, Tdap and Td Vaccines (2 - Td or Tdap) 11/27/2030 11/27/2020 Hepatitis C Completed 07/23/2017 Pneumococcal Vaccine: 50+ Years Completed 03/26/2023 PHQ-2 (Physician [place]) Completed 03/28/2024 Meningococcal B Vaccine Aged Out No l onger eligible based on patient's age to complete this topic Meningococcal Vaccine Aged Out No modesta claudia eligible based on patient's age to complete this topic RSV Immunizations Under 20 Months Aged Out No longer eligible based on patient's age to complete this topic Goals Goal Patient Goal Type Associated Problems Recent Progress Patient-Stated? 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 Procedure Name Priority Date/Time Associated Diagnosis Comments COLLECTION VENOUS BLOOD VENIPUNCTURE Routine 09/15/2024 9:59 AM CDT Acquired hypothyroidism Mixed hyperlipidemia Type 2 diabetes mellitus with hyperglycemia, without long-term current use of insulin ([facility]) Essential hypertension Mild intermittent asthma, unspecified whether complicated ([facility]) CBC W/DIFF AUTOMATED Routine 09/15/2024 9:59 AM CDT Mild intermittent asthma, unspecified whether complicated ([facility]) Type 2 diabetes mellitus with hyperglycemia, without long-term current use of insulin ([facility]) LIPID PANEL Routine 09/15/2024 9:59 AM CDT Mixed hyperlipidemia URIC ACID BLOOD Routine 09/15/2024 9:59 AM CDT Essential hypertension Mixed hyperlipidemia Type 2 diabetes mellitus with hyperglycemia, without long-term current use of insulin ([facility]) COMPREHENSIVE METABOLIC PANEL Routine 09/15/2024 9:59 AM CDT Essential hypertension Mixed hyperlipidemia Type 2 diabetes mellitus with hyperglycemia, without long-term current use of insulin ([facility]) HEMOGLOBIN, GLYCOSYLATED Routine 09/15/2024 9:59 AM CDT Type 2 diabetes mellitus with hyperglycemia, without long-term current use of insulin (CMS/HCC HHS/HCC) CK (CPK) Routine 09/15/2024 9:59 AM CDT Mixed hyperlipidemia THYROID STIM HORMONE TSH Routine 09/15/2024 9:59 AM CDT Acquired hypothyroidism THYROXINE, FREE (FT4) Routine 09/15/2024 9:59 AM CDT Acquired hypothyroidism HEPATITIS C ANTIBODY Routine 07/23/2017 11:57 AM CDT from Last 3 Months or Most Recently Relevant to Health Maintenance Results * (ABNORMAL) HEMOGLOBIN, GLYCOSYLATED (09/15/2024 9:59 AM CDT) HGB A1C 11.5(H) 4.5 - 6.2 % 09/15/2024 5:28 PM CDT [facility] ESTIMATED AVG GLUCOSE 283(H) 74 - 106 MG/DL 09/15/2024 5:28 PM CDT [facility] 09/15/2024 9:59 AM CDT [facility] Final Resul t [facility] [address] [place] [address], * (ABNORMAL) COMPREHENSIVE METABOLIC PANEL (09/15/2024 9:59 AM CDT) SODIUM S/P/B 139 136 - 145 MMOL/L 09/15/2024 5:18 PM CDT [facility] POTASSIUM S/P/B 4.2 3.5 - 5.1 MMOL/L 09/15/2024 5:18 PM CDT [facility] CHLORIDE S/P/B 100 98 - 107 MMOL/L 09/15/2024 5:18 PM CDT [facility] CO2 28.2 21 - 32 MMOL/L 09/15/2024 5:18 PM CDT [facility] GLUCOSE 308(H) 70 - 99 MG/DL 09/15/2024 5:18 PM CDT [facility] BUN 10 7 - 18 MG/DL 09/15/2024 5:18 PM T [facility] CREATININE S/P/B 0.64 0.55 - 1.02 MG/DL 09/15/2024 5:18 PM CDT [facility] CALCIUM S/P/B 8.8 8.4 - 10.5 MG/DL 09/15/2024 5:18 PM T [facility] BILIRUBIN TOTAL S/P/B 0.3 0.2 - 1.0 MG/DL 09/15/2024 5:18 PM T [facility] ALKALINE PHOSPHATASE S/P/B 104 41 - 108 U/L 09/15/2024 5:18 PM T [facility] AST 46(H) 15 - 37 U/L 09/15/2024 5:18 PM CDT [facility] ALT 54 14 - 59 U/L 09/15/2024 5:18 PM T [facility] TOTAL PROTEIN S/P/B 6.5 6.4 - 8.2 G/DL 09/15/2024 5:18 PM T [facility] ALBUMIN S/P/B 3.3(L) 3.4 - 5.0 G/DL 09/15/2024 5:18 PM T [facility] ANION GAP 10.8 5 - 15 MMOL/L 09/15/2024 5:18 PM T [facility] Comment:REFERENCE RANGE NOT ESTABLISHED OSMOLALITY (CALC) 299 MOSM/KG 025 5:18 PM T [facility] Comment:REFERENCE RANGE NOT ESTABLISHED GFR ESTIMATE >90 >90 ML/MIN/1. 73 M2 09/15/2024 5:18 PM CDT [facility] GFR NOTES GFR REFERENCE S: 09/15/2024 5:18 PM CDT [facility] Comment: THE ESTIMATED GFR IS CALCULATED USING THE 2020 CKD-EPI EQUATION. THE FOLLOWING CATEGORIES FOR GRADING RENAL FUNCTION ARE RECOMMENDED BY THE INTERNATIONAL SOCIETY OF NEPHROLOGY (KDIGO 2012 CLINICAL PRACTICE GUIDELINE). G1,NORMAL OR HIGH: >89 ml/min/1.73 m2 G2,MILDLY DECREASED: 60-89 ml/min/1.73 m2 G3A,MILDLY TO MODERATELY DECREASED: 45-59 ml/min/1.73 m2 G3B,MODERATELY TO SEVERELY DECREASED: 30-44 ml/min/1.73 m2 G4,SEVERELY DECREASED: 15-29 ml/min/1.73 m2 G5,KIDNEY FAILURE: <15 ml/min/1.73 m2 09/15/2024 9:59 AM CDT [facility] Final Resul t [facility] [address] [place] [address], * (ABNORMAL) LIPID PANEL (09/15/2024 9:59 AM CDT) CHOLESTEROL 207(H) <200 MG/DL 09/15/2024 5:18 PM CDT [facility] TRIGLYCERIDES 342(H) <150 MG/DL 09/15/2024 5:18 PM CDT [facility] HDL 35(L) >40 MG/DL 09/15/2024 5:18 PM CDT [facility] LDL-C 104(H) <100 MG/DL 09/15/2024 5:18 PM CDT [facility] VLDL CALCULATION 68(H) 5 - 28 MG/DL 09/15/2024 5:18 PM T [facility] CHOL/HDL RATIO 5.9(H) 0.0 - 4.0 09/15/2024 5:18 PM CDT [facility] LDL/HDL 3.0(H) 0.41 - 2.13 09/15/2024 5:18 PM CDT [facility] NON HDL CHOLESTEROL 172(H) <140 MG/DL 09/15/2024 5:18 PM CDT [facility] 09/15/2024 9:59 AM CDT us [facility] Final Resul t [facility] [address] [place] [address], * (ABNORMAL) CBC W/DIFF AUTOMATED (09/15/2024 9:59 AM CDT) WBC 7.77 4.00 - 10.80 x10'3/uL 09/15/2024 4:25 PM CDT [facility] RBC 5.00 4.10 - 5.40 x10'6/uL 09/15/2024 4:25 PM CDT [facility] HGB 13.7 12.0 - 16.0 G/DL 09/15/2024 4:25 PM CDT [facility] HCT 41.8 36.0 - 47.0 % 09/15/2024 4:25 PM CDT [facility] MCV 83.6 78.0 - 100.0 FL 09/15/2024 4:25 PM CDT [facility] MCH 27.4 27.0 - 31.0 PG 09/15/2024 4:25 PM CDT [facility] MCHC 32.8(L) 33.0 - 36.0 G/DL 09/15/2024 4:25 PM CDT [facility] RDW 13.0 11.5 - 14.5 % 09/15/2024 4:25 PM CDT -[facility] PLT 296 150 - 350 x10'3/uL 09/15/2024 4:25 PM CDT [facility] MPV 11.2(H) 7.4 - 10.4 FL 09/15/2024 4:25 PM CDT [facility] DIFFERENTIAL TYPE AUTOMATED DIFFERENTIAL 09/15/2024 4:25 PM CDT [facility] NEUTROPHILS % 53.8 % 09/15/2024 4:25 PM CDT [facility] LYMPHOCYTES % 33.6 % 09/15/2024 4:25 PM CDT [facility] MONOCYTES % 9.1 % 09/15/2024 4:25 PM CDT [facility] EOSINOPHILS % 2.4 % 09/15/2024 4:25 PM CDT [facility] BASOPHILS % 0.8 % 09/15/2024 4:25 PM CDT [facility] IMMATURE GRANS % 0.3 % 09/15/2024 4:25 PM CDT [facility] ABS. NEUTROPHILS 4.18 1.60 - 8.30 x10'3/uL 09/15/2024 4:25 PM CDT [facility] ABS. LYMPHOCYTES 2.61 0.80 - 4.70 x10'3/uL 09/15/2024 4:25 PM CDT [facility] ABS. MONOCYTES 0.71 0.00 - 1.50 x10'3/uL 09/15/2024 4:25 PM CDT [facility] ABS. EOSINOPHILS 0.19 0.00 - 0.40 x10'3/uL 09/15/2024 4:25 PM CDT [facility] ABS. BASOPHILS 0.06 0.00 - 0.20 x10'3/uL 09/15/2024 4:25 PM CDT [facility] ABS. IMMATURE GRANULOCYTES 0.02 0.00 - 0.03 x10'3/uL 09/15/2024 4:25 PM CDT [facility] 09/15/2024 9:59 AM CDT [facility] Final Resul t Performing Organization Address [facility] Co de Phone Number [address] [address], * THYROXINE, FREE (FT4) (09/15/2024 9:59 AM CDT) FREE T4 1.12 0.76 - 1.46 NG/DL 09/15/2024 5:18 PM CDT [facility] 09/15/2024 9:59 AM CDT [facility] Final Resul t Performing Organization Address [facility] de Phone Number [address] [address], * (ABNORMAL) THYROID STIM HORMONE TSH (09/15/2024 9:59 AM CDT) TSH 4.768(H) 0.358 - 3.740 uIU/ML 09/15/2024 5:18 PM CDT [facility] 09/15/2024 9:59 AM CDT [facility] Final Resul t Performing Organization Address [facility] Co de Phone Number [address] [address], * CK (CPK) (09/15/2024 9:59 AM CDT) CPK 27 26 - 192 U/L 09/15/2024 9:38 PM CDT [facility] 09/15/2024 9:59 AM CDT [facility] Final Resul t Performing Organization Address City/[facility] Co de Phone Number [facility] [address] [place] [address], [phone] * URIC ACID BLOOD (09/15/2024 9:59 AM CDT) Pathologist [facility] URIC ACID 3.4 2.6 - 6.0 MG/DL 09/15/2024 4:36 PM CDT [facility] 09/15/2024 9:59 AM CDT [facility] Final Resul t Performing Organization Address [facility] de Phone Number [facility] [address] [place] [address], * HEPATITIS C ANTIBODY (07/23/2017 11:57 AM CDT) [facility] HEPATITIS C AB NON-REACT VERA NON-REACT VERA [facility] TO EPIC CONVERSION SIGNAL TO CUTOFF 0.19 <1.00 [facility] TO EPIC CONVERSION Comment: Result Comment: Test Performed at: [facility] [address] [place] [address] CHRISTAL BARGER DO,MPH 07/23/2017 11:5 7 AM CDT 07/23/2017 11:57 AM CDT Narrative [facility] TO EPIC CONVERSION - 07/28/2017 2:00 PM CDT Result Communication: Call patient with results [facility] Final Resul t Performing Organization Address City/[facility] Co de Phone Number [facility] TO EPIC CONVERSION from Last 3 Months or Most Recently Relevant to Health Maintenance Insurance [facility] Advance Directives * Full Code (Latest Code Status on File) Date Activated Date Inactivated Comments 02/16/2024 10:16 PM 02/17/2024 3:18 PM * Full Code Date Activated Date Inactivated Comments 07/12/2018 8:59 PM 07/16/2018 3:42 PM * Full Code Date Activated Date Inactivated Comments 06/17/2018 10:06 PM 06/18/2018 6:21 PM Care Teams Gold Blower Relationship Specialty Start Date End Date Lesa Munguia APNP [address] [place] [id number] PCP - General NURSE PRACTITIONER 04/30/18 Jose Manuel Carranza MD [facility] [address] [place] [address] Bisi Carrier Packer CARDIOVASCULAR DISEASE 08/15/15
== END 2024-09-20 13:58 | disposition home or self-care (01) ==
PROVIDERS: PCP Registered Nurse; Visit Provider Obstetrics & Gynecology
DX: Z12.31 Encounter for screening mammogram for malignant neoplasm of breast (principal)
CPT/HCPCS: 77063; 77067